=== PATIENT | male | born 1990 ===

== ENCOUNTER 2023-12-27 17:39 | Emergency (ER) | payer OTHER ==
[~2023-12-27] VITALS: Ht 175.3 cm; Wt 95.2 kg
== END 2023-12-27 19:36 | disposition home or self-care (01) ==
LOC: ER 17:39
DX: S62.665A Nondisplaced fracture of distal phalanx of left ring finger, initial encounter for closed fracture (principal); S62.633A Displaced fracture of distal phalanx of left middle finger, initial encounter for closed fracture; S61.215A Laceration without foreign body of left ring finger without damage to nail, initial encounter; W19.XXXA Unspecified fall, initial encounter; Y99.0 Civilian activity done for income or pay; Z88.5 Allergy status to narcotic agent
CPT/HCPCS: 12001; 73140; 99283-25